=== PATIENT | female | born 1960 | race Caucasian/White ===

== ENCOUNTER 2018-06-17 14:50 | Observation (INO) ==
[2018-06-17] MEDS ORDERED: LORazepam 2 MG/1 ML VIAL IV STA (15:15)
[2018-06-17] MEDS ORDERED: SODIUM CHLORIDE 0.9% 1,000 ML IV STA (15:17)
[2018-06-17 16:05] LABS: Basophils % 0.1 % (0.0-0.8); Hematocrit 29.3 VOL% (35.7-47.0); Hemoglobin 9.6 GM/DL (12.0-16.0); Immature Granulocytes % 0.6 %; Immature Granulocytes Absolute 0.07 #; Lymphocytes # 0.9 10*3/uL (1.4-4.0); Lymphocytes % 7.8 % (21.3-54.2); Mean Corpuscular HGB Conc 32.8 GM/DL (32-36); Mean Corpuscular Hemoglobin 27 PG (27-34); Mean Corpuscular Volume 81.6 FL (87-102); Mean Platelet Volume 10.9 FL (9.6-12.0); Monocytes # 0.5 10*3/uL (0.11-0.8); Monocytes % 4.3 % (1.7-12.7); NRBC # 0.11 10*3/uL; Neutrophils # 9.5 10*3/uL (1.4-7.4); Neutrophils % 87.2 % (38.7-73.9); Platelet Count 208 T/CUMM (130-400); Red Blood Count 3.59 MC/CUMM (3.8-5.5); Red Cell Distribution Width 19.6 % (9.3-17.3); White Blood Count 10.9 T/CUMM (4-12)
[2018-06-17 16:15] LABS: Apearance,Urine Slightly Hazy (Clear); Bilirubin,Urine Negative (Negative); Blood, Urine Negative (Negative); Glucose,Urine (UA) Negative (Negative); Hyaline Casts,Urine 1 /LPF (0-3); Ketones,Urine 5 mg/dL (Negative); Mucus,Urine Occasional /LPF (Occasional); Nitrite,Urine Negative (Negative); Protein,Urine 30 MG/DL; RBC,Urine 3 /HPF (0-4); Squamous Epithelial Cell,Urine Occasional /HPF (0-10); Urine Color Amber (Yellow); Urine Specific Gravity 1.021 (1.001-1.035); Urine Urobilinogen < 2.0 EU/DL (0.2-1.0); WBC,Urine 29 /HPF (0-6)
[2018-06-17 16:29] LABS: Lactic Acid 1.4 MMOL/L (0.4-2.0)
[2018-06-17 16:32] LABS: Barbiturates Screen,Urine Negative (Negative); Benzodiazepines Screen,Urine Negative (Negative); Cannabinoid Screen,Urine Negative (Negative); Opiate Screen,Urine Positive (Negative); Phencyclidine Screen,Urine Negative (Negative)
[2018-06-17 16:40] LABS: Ammonia 212 UMOL/L (11-32)
[2018-06-17 16:48] LABS: Alanine Aminotransferase 22 U/L (13-56); Albumin 1.8 G/DL (3.4-5.0); Alkaline Phosphatase 672 U/L (45-117); Aspartate Amino Transferase 60 U/L (0-37); Blood Urea Nitrogen 126 MG/DL (7-18); Glucose 84 MG/DL (74-106); Osmolality,Calculated 307.2 MOS/KG (273-304); Sodium 134 MMOL/L (136-145); Total Protein 6.8 G/DL (6.4-8.3)
[2018-06-17 16:53] LABS: Calcium < 5.0 MG/DL (8.5-10.1); Potassium 6.9 MMOL/L (3.5-5.1)
[2018-06-17] MEDS ORDERED: INSULIN REGULAR 100 UNIT/ML IV STA (16:56)
[2018-06-17] MEDS ORDERED: DEXTROSE 50% 25 GM/50 ML VIAL IV STA (16:56)
[2018-06-17] MEDS ORDERED: ALBUTEROL NEB SOLN 5 MG/ML 20 ML/BOTTLE CONT NEB STA (16:56)
[2018-06-17] MEDS ORDERED: CALCIUM CHLORIDE 1,000 MG/10 ML SYRINGE IV STA (16:56)
[2018-06-17] MEDS ORDERED: DEXTROSE 50% 25 GM/50 ML SYRINGE IV ONE (17:33)
[2018-06-17] MEDS ORDERED: MAGNESIUM SULF RIDER 2 GM in PREMIX 1 EACH IV STA (17:46)
[2018-06-17] MEDS ORDERED: MAGNESIUM SULF RIDER 50 ML IV ONE (17:47)
[2018-06-17] MEDS: SODIUM BICARB INJ 100 MEQ in DEXTROSE 5% 1,000 ML IV SCH (18:01)
[2018-06-17] MEDS: MORPHINE 4 MG/1 ML VIAL IV PRN ×3 (19:24→23:01)
[2018-06-17] MEDS: LORazepam 2 MG/1 ML VIAL IV PRN (23:01)
[2018-06-18] MEDS: MORPHINE 4 MG/1 ML VIAL IV PRN ×4 (01:09→06:27)
[2018-06-18] MEDS: LORazepam 2 MG/1 ML VIAL IV PRN ×4 (01:10→06:26)
[2018-06-18] MEDS: SODIUM CHLORIDE 0.9% 1,000 ML IV SCH ×2 (04:47→09:58)
[2018-06-18] MEDS: SODIUM BICARB INJ 100 MEQ in DEXTROSE 5% 1,000 ML IV SCH (05:27)
[2018-06-18 08:51] VITALS: BP 81/45
[2018-06-20] MEDS ORDERED: SCOPOLAMINE 1.5 MG PATCH TRANSDERM SCH (09:00)
== END 2018-06-18 14:15 | disposition expired ==
LOC: EDBD → EDUNIT# → N.ED 14:50 → N.4E 14:50 → SUATTDRO 17:28 → N.4E 18:50
PROVIDERS: ADMIT Phlebology; ATTEND Internal Medicine